=== PATIENT | female | born 1935 ===

== ENCOUNTER 2024-09-18 08:00 | Outpatient (CLI) | payer OTHER ==
[2024-09-18 10:54] LABS: PH,URINE 5.5 (5.0-8.0); URINE APPEARANCE Cloudy; URINE BILIRRUBIN Negative (NEGATIVE); URINE BLOOD Trace; URINE COLOR Yellow; URINE KETONE Negative (NEGATIVE); URINE LEUKOCYTE Small; URINE NITRATE Negative; URINE PROTEIN 30 (NEGATIVE); URINE UROBILINOGEN 0.2 E.U./dl
[2024-09-18 10:58] LABS: URINE BACTERIA 566.6 uL (0.0-1933); URINE CAST 1.76 uL (0.0-1.40); URINE EPITHELIAL CELLS 18.3 uL (0.0-38.8); URINE RBC 7.5 uL (0.0-20.8); URINE WBC 228.7 uL (0.0-23.2)
[2024-09-18 11:00] LABS: BASO % 0.8 % (0.1-1.2); EOS # 0.11 (0.04-0.54); HEMATOCRIT 27.4 % (34.1-44.9); HEMOGLOBIN 9.2 g/dL (11.2-15.7); LYMPH # 1.95 (1.18-3.74); LYMPH % 17.8 % (19.3-53.1); MEAN CORPUSCULAR HEMOGLOBIN 35.2 pg (25.6-32.2); MONO # 1.37 (0.24-0.82); NEUT # 7.34 (1.56-6.13); PLATELET COUNT 445 K/uL (163-369); RED BLOOD COUNT 2.61 M/uL (3.93-5.22); RED CELL DISTRIBUTION WIDTH 13.3 % (11.6-14.4)
[2024-09-18 11:01] LABS: MONO % 12.5 % (4.7-12.5)
[2024-09-18 11:15] LABS: INR 1.04; PARTIAL THROMBOPLASTIN TIME 23.4 SECONDS (22.0-34.0); PROTHROMBIN TIME 11.3 SECONDS (9.0-11.5)
[2024-09-18] MEDS ORDERED: FARXIGA10 MG PO (11:30)
[2024-09-18] MEDS ORDERED: SYNTHROID125 MCG PO (11:30)
[2024-09-18] MEDS ORDERED: TRULICITY0.75 MG/0. (11:30)
[2024-09-18] MEDS ORDERED: NORVASC2.5 M1 PO (11:31)
[2024-09-18] MEDS ORDERED: NORVASC5 MG PO (11:31)
[2024-09-18] MEDS ORDERED: COZAAR100 MG PO (11:31)
[2024-09-18] MEDS ORDERED: ZOCOR20 MG PO (11:32)
[2024-09-18] MEDS ORDERED: KERENDIA10 MG PO (11:32)
[2024-09-18] MEDS ORDERED: TOLTERODINE TART4 MG PO (11:33)
[2024-09-18 11:53] LABS: URINE GLUCOSE >=1000 MG/DL (NEGATIVE)
[2024-09-18 11:54] VITALS: BP 114/69
[2024-09-18 11:55] LABS: URINE MUCUS SCANT
[2024-09-18 11:56] LABS: TYPE CELLS SQUAMOUS
[2024-09-18 12:00] LABS: ALBUMIN 2.9 gm/dL (3.4-5.0); BILIRUBIN TOTAL 0.49 mg/dL (0.3-1.2); BILIRUBIN,CONJUGATED 0.19 mg/dL (0.0-0.2); BILIRUBIN,UNCONJUGATED 0.3 mg/dL (0.0-0.6); CALCIUM 9.7 mg/dL (8.5-10.1); POTASSIUM 5.33 mEq/L (3.5-5.1); TOTAL PROTEIN 7.3 gm/dL (6.4-8.2)
[2024-09-18 12:02] LABS: CREATININE SERUM 1.51 mg/dL (0.55-1.02); GFR 32.52
== END 2024-09-18 08:01 | disposition home or self-care (01) ==
LOC: LAB 08:00 → ADM 08:30 → CIR.AMB 09-23 07:00 → EDSTATUS 09-23 08:30
PROVIDERS: ATTEND Surgery
DX: K80.20 Calculus of gallbladder without cholecystitis without obstruction (principal); D68.8 Other specified coagulation defects; Z01.818 Encounter for other preprocedural examination; I10 Essential (primary) hypertension

== ENCOUNTER 2024-09-22 08:13 | Inpatient (IN) | payer OTHER ==
[~2024-09-22] VITALS: Ht 167.6 cm; Wt 72.6 kg
[~2024-09-22 08:13] MED LIST: COZAAR100 MG PO; FARXIGA10 MG PO; KERENDIA10 MG PO; NORVASC2.5 M1 PO; NORVASC5 MG PO; SYNTHROID125 MCG PO; TOLTERODINE TART4 MG PO; TRULICITY0.75 MG/0.; ZOCOR20 MG PO
--- NOTE | 2024-09-22 08:22 | NUR ---
SE RECIBE PACIENTE ALERTA Y ORIENTADA X3 EN COMPANIA DE FAMILIAR LA CUAL REFIERE VENIR POR TRACEY DE ESPALDA BAJA, ESCALOFRIOS Y REFIERE QUE MANANA TIENE DONOVAN OPERACION PROGRAMADA PARA MANANA DE VESICULA CON DR. PREETI RAYMOND.
[2024-09-22] MEDS ORDERED: 0.9 % SODIUM CHLORIDE 1,000 ML IV SCH (09:15)
--- NOTE | 2024-09-22 09:26 | NUR ---
APPLE ORIENTA A PTE SOBRE TX MEDICO ORDENADO POR . REALIZA KADE[place] DE MUESTRAS DE LAB MARY ORDEN MEDICA Y BAJO MEDIDAS ASPECTICAS. VENOPUNCION PATENTE JOSESITO DE EDEMA Y ERITEMA BAJANDO IV FLUIDS POR REGULADOR. PTE PENDIENTE A RESULTAODS DE LAB.
[2024-09-22 09:45] LABS: BASO % 0.4 % (0.1-1.2); EOS # 0.00 (0.04-0.54); EOS % 0.0 % (0.7-7.0); LYMPH # 1.03 (1.18-3.74); LYMPH % 5.7 % (19.3-53.1); MEAN PLATELET VOLUME 10.50 fl (9.4-12.4); MONO # 1.46 (0.24-0.82); MONO % 8.1 % (4.7-12.5); NEUT # 15.35 (1.56-6.13); NEUT % 85.2 % (34.0-71.1); RED CELL DISTRIBUTION WIDTH 13.2 % (11.6-14.4)
[2024-09-22 10:07] LABS: INR 1.11
[2024-09-22 10:10] LABS: URINE APPEARANCE Clear; URINE BILIRRUBIN Negative (NEGATIVE); URINE BLOOD Trace; URINE COLOR Yellow; URINE KETONE Negative (NEGATIVE); URINE LEUKOCYTE Small; URINE NITRATE Positive; URINE PROTEIN 30 (NEGATIVE); URINE UROBILINOGEN 0.2 E.U./dl
[2024-09-22] MEDS ORDERED: PIPERACILLIN/TAZOBACTAM SODIUM 3.375 GM VIAL IV ONE ×2 (10:11→10:15)
[2024-09-22 10:12] LABS: ALT/SGPT 20.0 U/L (12-78); AST/SGOT 20.0 U/L (15-37); BILIRUBIN TOTAL 0.61 mg/dL (0.3-1.2); BILIRUBIN,CONJUGATED 0.24 mg/dL (0.0-0.2); BUN CREA RATIO 15.0 (7.0-25.0); CREATININE SERUM 1.95 mg/dL (0.55-1.02); GFR 24.21; GLOBULINA 4.7 G/DL (2.4-3.5); OSMOLALITY SERUM 291.0 MOSM/KG (275-295)
[2024-09-22 10:14] LABS: URINE BACTERIA 4021.8 uL (0.0-1933); URINE EPITHELIAL CELLS 20.8 uL (0.0-38.8); URINE RBC 11.6 uL (0.0-20.8); URINE WBC 275.4 uL (0.0-23.2)
[2024-09-22 10:32] LABS: GLUCOSE FASTING 259.0 mg/dL (65-100)
[2024-09-22 10:47] LABS: COVID-19 AG NEGATIVE (NEGATIVE)
[2024-09-22 10:49] LABS: URINE CAST 0.58 uL (0.0-1.40); URINE GLUCOSE >=1000 MG/DL (NEGATIVE)
[2024-09-22] MEDS ORDERED: ONDANSETRON HCL 2 MG/ML VIAL IV PRN (15:00)
[2024-09-22] MEDS ORDERED: ENALAPRILAT DIHYDRATE 2.5 MG/2 ML VIAL IV PRN (15:00)
[2024-09-22] MEDS ORDERED: ACETAMINOPHEN 500 MG GEL..CAP PO PRN (15:00)
[2024-09-22] MEDS ORDERED: DEXTROSE 50 % IN WATER 0.5 G/ML VIAL IV PRN (15:00)
[2024-09-22] MEDS ORDERED: INSULIN LISPRO 1,000 UNIT/10 ML UNITS SUBCUTANEO PRN (15:00)
[2024-09-22] MEDS ORDERED: FAMOTIDINE/PF 20 MG in 0.9 % SODIUM CHLORIDE 8 ML IV PUSH SCH (15:00)
[2024-09-22] MEDS ORDERED: FAMOTIDINE/PF 20 MG/2 ML VIAL ONE ×2 (15:15→21:57)
[2024-09-22] MEDS ORDERED: OSELTAMIVIR PHOSPHATE 30MG CAP PO SCH (17:00)
[2024-09-22] MEDS ORDERED: ENOXAPARIN SODIUM 30 MG/0.3 ML SYRINGE SUBCUTANEO SCH (17:00)
[2024-09-22] MEDS ORDERED: INSULIN LISPRO 1,000 UNIT/10 ML UNITS SUBCUTANEO ONE (17:33)
[2024-09-22 20:28] LABS: URINE APPEARANCE Clear; URINE BILIRRUBIN Negative (NEGATIVE); URINE BLOOD Trace; URINE COLOR Yellow; URINE KETONE Negative (NEGATIVE); URINE LEUKOCYTE Moderate; URINE NITRATE Negative; URINE PROTEIN 30 (NEGATIVE); URINE UROBILINOGEN 0.2 E.U./dl
[2024-09-22 20:31] LABS: URINE BACTERIA 692.6 uL (0.0-1933); URINE CAST 1.32 uL (0.0-1.40); URINE EPITHELIAL CELLS 61.4 uL (0.0-38.8); URINE GLUCOSE >=1000 MG/DL (NEGATIVE); URINE RBC 32.2 uL (0.0-20.8); URINE WBC 468.8 uL (0.0-23.2)
[2024-09-22 20:55] LABS: URINE YEAST MODERATE /hpf
[2024-09-22 20:56] LABS: TYPE CELLS SQUAMOUS; URINE MUCUS SCANT
[2024-09-22] MEDS ORDERED: ACETAMINOPHEN 500 MG GEL..CAP PO ONE (22:48)
[2024-09-22 22:50] VITALS: BP 161/75; O2SAT 100
[2024-09-22 23:35] VITALS: BP 145/66; O2SAT 97
[2024-09-23] MEDS ORDERED: PIPERACILLIN/TAZOBACTAM SODIUM 2.25 GM in DEXTROSE 5 % IN WATER 50 ML IV SCH
[2024-09-23] MEDS ORDERED: LEVOTHYROXINE SODIUM 125 MCG TABLET PO SCH (06:00)
[2024-09-23 06:14] LABS: BASO % 0.5 % (0.1-1.2); EOS # 0.09 (0.04-0.54); EOS % 0.7 % (0.7-7.0); LYMPH # 2.06 (1.18-3.74); LYMPH % 16.4 % (19.3-53.1); MEAN PLATELET VOLUME 10.70 fl (9.4-12.4); MONO # 1.40 (0.24-0.82); MONO % 11.1 % (4.7-12.5); NEUT # 8.89 (1.56-6.13); NEUT % 70.8 % (34.0-71.1); RED CELL DISTRIBUTION WIDTH 13.3 % (11.6-14.4)
[2024-09-23] MEDS ORDERED: ENALAPRILAT DIHYDRATE 1.25 MG/ML VIAL IV PRN (06:45)
[2024-09-23 06:46] LABS: ALT/SGPT 17.0 U/L (12-78); AST/SGOT 12.0 U/L (15-37); BILIRUBIN TOTAL 0.43 mg/dL (0.3-1.2); BUN CREA RATIO 16.0 (7.0-25.0); CREATININE SERUM 1.76 mg/dL (0.55-1.02); GFR 27.25; GLOBULINA 4.2 G/DL (2.4-3.5); GLUCOSE FASTING 128.0 mg/dL (65-100); OSMOLALITY SERUM 290.0 MOSM/KG (275-295)
[2024-09-23 08:05] VITALS: BP 137/66; O2SAT 100
[2024-09-23] MEDS ORDERED: LOSARTAN POTASSIUM 100 MG TABLET PO SCH (09:00)
[2024-09-23] MEDS ORDERED: AMLODIPINE BESYLATE 5 MG TABLET PO SCH (09:00)
[2024-09-23 17:38] VITALS: BP 148/64
[2024-09-23 19:37] LABS: BASO % 0.8 % (0.1-1.2); EOS # 0.21 (0.04-0.54); EOS % 2.3 % (0.7-7.0); LYMPH # 1.66 (1.18-3.74); LYMPH % 18.0 % (19.3-53.1); MEAN PLATELET VOLUME 11.10 fl (9.4-12.4); MONO # 1.15 (0.24-0.82); NEUT # 6.06 (1.56-6.13); NEUT % 65.9 % (34.0-71.1); RED CELL DISTRIBUTION WIDTH 15.5 % (11.6-14.4)
[2024-09-23 19:40] LABS: MONO % 12.5 % (4.7-12.5)
[2024-09-24 02:26] VITALS: BP 125/68; O2SAT 94
[2024-09-24 06:58] LABS: BASO % 1.0 % (0.1-1.2); EOS # 0.29 (0.04-0.54); EOS % 3.3 % (0.7-7.0); LYMPH # 2.66 (1.18-3.74); LYMPH % 30.2 % (19.3-53.1); MEAN PLATELET VOLUME 11.50 fl (9.4-12.4); MONO # 1.42 (0.24-0.82); NEUT # 4.32 (1.56-6.13); NEUT % 49.1 % (34.0-71.1); RED CELL DISTRIBUTION WIDTH 15.5 % (11.6-14.4)
[2024-09-24 07:13] LABS: MONO % 16.1 % (4.7-12.5)
[2024-09-24 08:23] VITALS: BP 154/74; O2SAT 99
[2024-09-24 08:37] LABS: URINE APPEARANCE Clear; URINE BACTERIA 48.9 uL (0.0-1933); URINE BILIRRUBIN Negative (NEGATIVE); URINE BLOOD Trace; URINE COLOR Yellow; URINE EPITHELIAL CELLS 9.8 uL (0.0-38.8); URINE KETONE Negative (NEGATIVE); URINE LEUKOCYTE Small; URINE NITRATE Negative; URINE PROTEIN Trace (NEGATIVE); URINE UROBILINOGEN 0.2 E.U./dl; URINE WBC 64.4 uL (0.0-23.2)
[2024-09-24 08:56] LABS: URINE CAST 0.29 uL (0.0-1.40); URINE GLUCOSE 500 MG/DL (NEGATIVE); URINE RBC 1.0 uL (0.0-20.8)
[2024-09-24] MEDS ORDERED: LACTOBACILLUS ACIDOPHILUS 1 CAP CAP PO SCH (09:00)
[2024-09-24] MEDS ORDERED: IRON FUM,PS/FOLIC/BCOMP,C NO.9 1 CAP CAPSULE PO SCH (09:00)
[2024-09-24] MEDS ORDERED: FOLIC ACID 1 MG TABLET PO SCH (09:00)
[2024-09-24] MEDS ORDERED: Cyanocobalamin/Mecobalamin 1 TAB.SL SL SCH (09:00)
[2024-09-24 18:49] VITALS: BP 156/54
[2024-09-25 01:55] VITALS: BP 158/67; O2SAT 96
[2024-09-25 06:32] LABS: BASO % 0.9 % (0.1-1.2); EOS # 0.31 (0.04-0.54); EOS % 4.1 % (0.7-7.0); LYMPH # 2.41 (1.18-3.74); LYMPH % 32.3 % (19.3-53.1); MEAN PLATELET VOLUME 11.40 fl (9.4-12.4); MONO # 1.08 (0.24-0.82); NEUT # 3.57 (1.56-6.13); NEUT % 47.8 % (34.0-71.1); RED CELL DISTRIBUTION WIDTH 15.1 % (11.6-14.4)
[2024-09-25 06:54] LABS: MONO % 14.5 % (4.7-12.5)
[2024-09-25 07:45] LABS: BUN CREA RATIO 10.0 (7.0-25.0); CREATININE SERUM 1.39 mg/dL (0.55-1.02); GFR 35.78; GLUCOSE FASTING 104.0 mg/dL (65-100); OSMOLALITY SERUM 288.0 MOSM/KG (275-295)
[2024-09-25 08:26] VITALS: BP 142/74; O2SAT 100
[2024-09-25] MEDS ORDERED: CEFTRIAXONE SODIUM 2,000 MG VIAL IV SCH (17:00)
[2024-09-25 18:37] VITALS: BP 150/63
[2024-09-26 01:38] VITALS: BP 151/70; O2SAT 96
[2024-09-26 07:00] VITALS: BP 170/84; O2SAT 97
[2024-09-26 18:14] VITALS: BP 162/69; O2SAT 98
[2024-09-27 01:34] VITALS: BP 150/70; O2SAT 97
[2024-09-27 07:00] VITALS: BP 169/62; O2SAT 95
[2024-09-27 08:33] LABS: ALT/SGPT 25.0 U/L (12-78); AST/SGOT 33.0 U/L (15-37); BILIRUBIN TOTAL 0.33 mg/dL (0.3-1.2); BUN CREA RATIO 9.0 (7.0-25.0); CREATININE SERUM 1.19 mg/dL (0.55-1.02); GFR 42.81; GLOBULINA 4.0 G/DL (2.4-3.5); GLUCOSE FASTING 137.0 mg/dL (65-100); OSMOLALITY SERUM 288.0 MOSM/KG (275-295)
[2024-09-27 09:28] LABS: BASO % 1.1 % (0.1-1.2); EOS # 0.35 (0.04-0.54); EOS % 5.3 % (0.7-7.0); LYMPH # 2.41 (1.18-3.74); LYMPH % 36.7 % (19.3-53.1); MEAN PLATELET VOLUME 11.30 fl (9.4-12.4); MONO # 0.86 (0.24-0.82); NEUT # 2.79 (1.56-6.13); NEUT % 42.6 % (34.0-71.1); RED CELL DISTRIBUTION WIDTH 15.4 % (11.6-14.4)
[2024-09-27 09:31] LABS: MONO % 13.1 % (4.7-12.5)
[2024-09-27] MEDS ORDERED: BISMUTH SUBSALICYLATE 524 MG/30 ML BLIST.PACK PO NR (15:10)
[2024-09-27 16:00] VITALS: BP 164/67; O2SAT 98
[2024-09-27] MEDS ORDERED: FAMOTIDINE/PF 20 MG in 0.9 % SODIUM CHLORIDE 8 ML IV PUSH SCH (21:00)
[2024-09-28 02:03] VITALS: BP 153/55; O2SAT 97
[2024-09-28 10:11] VITALS: BP 134/59; O2SAT 97
[2024-09-28 18:25] VITALS: BP 154/71
[2024-09-29 01:00] VITALS: BP 165/54; O2SAT 98
[2024-09-29 09:08] VITALS: BP 157/65; O2SAT 94
[2024-09-29 18:43] VITALS: BP 160/77; O2SAT 98
[2024-09-29] MEDS ORDERED: ACETAMINOPHEN 500 MG GEL..CAP PO PRN (19:45)
[2024-09-30] VITALS (8 sets, daily range): BP systolic 123–200; BP diastolic 62–100; O2SAT 85–99
[2024-09-30 08:32] LABS: BASO % 0.6 % (0.1-1.2); EOS # 0.03 (0.04-0.54); EOS % 0.3 % (0.7-7.0); LYMPH # 0.90 (1.18-3.74); LYMPH % 10.3 % (19.3-53.1); MEAN PLATELET VOLUME 10.70 fl (9.4-12.4); MONO # 0.09 (0.24-0.82); MONO % 1.0 % (4.7-12.5); NEUT # 7.60 (1.56-6.13); NEUT % 87.1 % (34.0-71.1); RED CELL DISTRIBUTION WIDTH 15.4 % (11.6-14.4)
[2024-09-30 09:50] LABS: ALT/SGPT 20.0 U/L (12-78); AST/SGOT 24.0 U/L (15-37); BILIRUBIN TOTAL 0.55 mg/dL (0.3-1.2); BUN CREA RATIO 7.0 (7.0-25.0); CREATININE SERUM 1.02 mg/dL (0.55-1.02); GFR 51.14; GLOBULINA 4.1 G/DL (2.4-3.5); GLUCOSE FASTING 199.0 mg/dL (65-100); OSMOLALITY SERUM 287.0 MOSM/KG (275-295)
[2024-09-30] MEDS ORDERED: ONDANSETRON HCL 4 MG in 0.9 % SODIUM CHLORIDE 50 ML IV PRN (16:00)
[2024-09-30] MEDS ORDERED: MEPERIDINE HCL/PF 25 MG/ML VIAL IV PRN (16:00)
[2024-09-30] MEDS ORDERED: IPRATROPIUM BROMIDE 0.5 MG/2.5 ML AMPUL.NEB IH SCH (17:00)
[2024-09-30] MEDS ORDERED: MEROPENEM 500 MG in 0.9 % SODIUM CHLORIDE 50 ML IV SCH (17:00)
[2024-09-30] MEDS ORDERED: FAMOTIDINE/PF 20 MG in 0.9 % SODIUM CHLORIDE 100 ML IV SCH (17:00)
[2024-09-30] MEDS ORDERED: CIPROFLOXACIN IN 5 % DEXTROSE 200 ML IV SCH (17:00)
[2024-09-30] MEDS ORDERED: LEVALBUTEROL HCL 0.63 MG/3 ML SOLUTION IH SCH (17:00)
[2024-09-30 17:27] LABS: ABG PH 7.423 (7.35-7.45); ABG PO2 69.4 mmHg (80-100); BICARBONATE 21.8 mmol/l (23-25)
[2024-09-30 17:58] LABS: o2 21 %
[2024-09-30 18:32] LABS: URINE APPEARANCE Clear; URINE BILIRRUBIN Negative (NEGATIVE); URINE BLOOD Negative; URINE COLOR Yellow; URINE GLUCOSE Negative (NEGATIVE); URINE KETONE Negative (NEGATIVE); URINE LEUKOCYTE Small; URINE NITRATE Negative; URINE UROBILINOGEN 0.2 E.U./dl
[2024-09-30 18:33] LABS: URINE BACTERIA 97.2 uL (0.0-1933); URINE EPITHELIAL CELLS 26.4 uL (0.0-38.8); URINE RBC 6.8 uL (0.0-20.8); URINE WBC 108.5 uL (0.0-23.2)
[2024-09-30 19:39] LABS: URINE CAST 1.31 uL (0.0-1.40); URINE PROTEIN 100 (NEGATIVE)
[2024-09-30 19:44] LABS: TYPE CELLS SQUAMOUS
[2024-09-30 19:45] LABS: URINE YEAST FEW /hpf
[2024-10-01] VITALS (9 sets, daily range): BP systolic 106–128; BP diastolic 60–65; O2SAT 95–99
[2024-10-01 06:19] LABS: BASO % 0.4 % (0.1-1.2); EOS # 0.05 (0.04-0.54); EOS % 0.3 % (0.7-7.0); LYMPH # 3.04 (1.18-3.74); LYMPH % 18.1 % (19.3-53.1); MEAN PLATELET VOLUME 11.00 fl (9.4-12.4); MONO # 1.29 (0.24-0.82); MONO % 7.7 % (4.7-12.5); NEUT # 12.27 (1.56-6.13); NEUT % 72.9 % (34.0-71.1); RED CELL DISTRIBUTION WIDTH 15.5 % (11.6-14.4)
[2024-10-01 07:00] LABS: ALT/SGPT 15.0 U/L (12-78); AST/SGOT 16.0 U/L (15-37); BILIRUBIN TOTAL 0.29 mg/dL (0.3-1.2); BUN CREA RATIO 11.0 (7.0-25.0); CREATININE SERUM 1.31 mg/dL (0.55-1.02); GFR 38.32; GLOBULINA 3.4 G/DL (2.4-3.5); GLUCOSE FASTING 152.0 mg/dL (65-100); OSMOLALITY SERUM 285.0 MOSM/KG (275-295)
[2024-10-01] MEDS ORDERED: PANTOPRAZOLE SODIUM 40 MG/VIAL VIAL IV SCH (07:30)
[2024-10-01] MEDS ORDERED: IPRATROPIUM BROMIDE 0.5 MG/2.5 ML AMPUL.NEB IH SCH (09:00)
[2024-10-01] MEDS ORDERED: LEVALBUTEROL HCL 0.63 MG/3 ML SOLUTION IH SCH (09:00)
[2024-10-01] MEDS ORDERED: VANCOMYCIN HCL 1,000 MG VIAL IV SCH (12:00)
[2024-10-01] MEDS ORDERED: AA 5 %/CALCIUM/LYTES/DEXT 20 % 2,000 ML CENTRAL SCH (17:00)
[2024-10-01] MEDS ORDERED: LINEZOLID IN DEXTROSE 5% 300 ML IV SCH (17:00)
[2024-10-01 21:28] LABS: ALT/SGPT 16.0 U/L (12-78); AST/SGOT 14.0 U/L (15-37); BILIRUBIN TOTAL 0.31 mg/dL (0.3-1.2); BUN CREA RATIO 11.0 (7.0-25.0); CHOL HDL RATIO 2.7 (0-5.0); CREATININE SERUM 1.71 mg/dL (0.55-1.02); GFR 28.17; GLOBULINA 3.4 G/DL (2.4-3.5); HDL 41.0 mg/dl (40-60); LDL 50.0 mg/dl (0-130); OSMOLALITY SERUM 286.0 MOSM/KG (275-295); VLDL 17.0 (0-39)
[2024-10-01 21:31] LABS: GLUCOSE FASTING 212.0 mg/dL (65-100)
[2024-10-02] VITALS (8 sets, daily range): BP systolic 130–159; BP diastolic 63–74; O2SAT 90–98
[2024-10-02 05:50] LABS: BASO % 0.5 % (0.1-1.2); EOS # 0.23 (0.04-0.54); EOS % 1.4 % (0.7-7.0); LYMPH # 2.13 (1.18-3.74); LYMPH % 12.6 % (19.3-53.1); MEAN PLATELET VOLUME 11.30 fl (9.4-12.4); MONO # 1.19 (0.24-0.82); MONO % 7.0 % (4.7-12.5); NEUT # 13.22 (1.56-6.13); NEUT % 77.9 % (34.0-71.1); RED CELL DISTRIBUTION WIDTH 15.7 % (11.6-14.4)
[2024-10-02] MEDS ORDERED: BENZONATATE 200 MG CAPSULE PO SCH (17:00)
[2024-10-02] MEDS ORDERED: LORATADINE 10 MG TABLET PO SCH (21:00)
[2024-10-03] VITALS (9 sets, daily range): BP systolic 131–168; BP diastolic 66–82; O2SAT 90–100
[2024-10-03] MEDS ORDERED: HYOSCYAMINE SULFATE 0.125 MG TAB.SUBL SL NR (08:30)
[2024-10-03] MEDS ORDERED: HYOSCYAMINE SULFATE 0.125 MG TAB.SUBL SL SCH (14:00)
[2024-10-03] MEDS ORDERED: FLUCONAZOLE IN NACL,ISO-OSM 200 MG/100 ML PIGGYBAG IV NR (16:00)
[2024-10-04] VITALS (8 sets, daily range): BP systolic 132–160; BP diastolic 59–72; O2SAT 90–100
[2024-10-04] MEDS ORDERED: GUAIFEN/DEXTROMETHORPHAN/PE 10 ML BLIST.PACK PO SCH (12:00)
[2024-10-05] VITALS (9 sets, daily range): BP systolic 150–167; BP diastolic 67–86; O2SAT 90–100
[2024-10-05 07:15] LABS: ALT/SGPT 20.0 U/L (12-78); AST/SGOT 20.0 U/L (15-37); BILIRUBIN TOTAL 0.41 mg/dL (0.3-1.2); BUN CREA RATIO 9.0 (7.0-25.0); CREATININE SERUM 0.9 mg/dL (0.55-1.02); GFR 59.09; GLOBULINA 3.7 G/DL (2.4-3.5); GLUCOSE FASTING 150.0 mg/dL (65-100); OSMOLALITY SERUM 294.0 MOSM/KG (275-295)
[2024-10-05] MEDS ORDERED: FLUTICASONE PROPIONATE 50 MCG SPRAY NASAL SCH (21:00)
[2024-10-06] VITALS (9 sets, daily range): BP systolic 129–171; BP diastolic 64–73; O2SAT 96–100
[2024-10-06 05:33] LABS: BASO % 1.2 % (0.1-1.2); EOS # 0.55 (0.04-0.54); EOS % 5.9 % (0.7-7.0); LYMPH # 3.56 (1.18-3.74); LYMPH % 38.5 % (19.3-53.1); MEAN PLATELET VOLUME 10.70 fl (9.4-12.4); MONO # 1.13 (0.24-0.82); NEUT # 3.82 (1.56-6.13); NEUT % 41.3 % (34.0-71.1); RED CELL DISTRIBUTION WIDTH 16.1 % (11.6-14.4)
[2024-10-06 05:39] LABS: MONO % 12.2 % (4.7-12.5)
[2024-10-06 06:53] LABS: ALT/SGPT 16.0 U/L (12-78); AST/SGOT 18.0 U/L (15-37); BILIRUBIN TOTAL 0.38 mg/dL (0.3-1.2); BUN CREA RATIO 9.0 (7.0-25.0); CREATININE SERUM 0.81 mg/dL (0.55-1.02); GFR 66.73; GLOBULINA 3.5 G/DL (2.4-3.5); GLUCOSE FASTING 136.0 mg/dL (65-100); OSMOLALITY SERUM 287.0 MOSM/KG (275-295)
[2024-10-06] MEDS ORDERED: MAGNESIUM SULFATE IN WATER 2 GM/50 ML PIGGYBAG IV NR (16:00)
[2024-10-06] MEDS ORDERED: INSULIN LISPRO 1,000 UNIT/10 ML UNITS SUBCUTANEO PRN (18:30)
[2024-10-07] VITALS (7 sets, daily range): BP systolic 144; BP diastolic 67–73; O2SAT 89–99
[2024-10-07] MEDS ORDERED: CODEINE PHOSPHATE/GUAIFENESIN 5 ML ML PO SCH (01:00)
[2024-10-07] MEDS ORDERED: INSULIN NPH HUM/REG INSULIN HM 1,000 UNIT/10 ML UNITS SUBCUTANEO SCH (08:00)
== END 2024-10-07 16:13 | disposition home or self-care (01) | DRG 445 ==
LOC: ER 08:13 → SEC-K 15:16 → SURH 21:02 → SEC-K 22:07 → MEDJ 09-23 10:20 → MEDI 10-01 15:49
PROVIDERS: Emergency Medicine; Internal Medicine; Internal Medicine Infectious Disease; ADMIT Internal Medicine; ATTEND Internal Medicine
PROC: BW40ZZZ Ultrasonography of Abdomen (ICD-10-PCS; principal; 2024-09-22)
PROC: 30233N1 Transfusion of Nonautologous Red Blood Cells into Peripheral Vein, Percutaneous Approach (ICD-10-PCS; 2024-09-23)
PROC: B246ZZZ Ultrasonography of Right and Left Heart (ICD-10-PCS; 2024-09-24)
PROC: 02HV33Z Insertion of Infusion Device into Superior Vena Cava, Percutaneous Approach (ICD-10-PCS; 2024-09-29)
PROC: BW21YZZ Computerized Tomography (CT Scan) of Abdomen and Pelvis using Other Contrast (ICD-10-PCS; 2024-09-30)
PROC: 3E0F7GC Introduction of Other Therapeutic Substance into Respiratory Tract, Via Natural or Artificial Opening (ICD-10-PCS; 2024-09-30)
PROC: 4A12X4Z Monitoring of Cardiac Electrical Activity, External Approach (ICD-10-PCS; 2024-09-30)
PROC: BB24ZZZ Computerized Tomography (CT Scan) of Bilateral Lungs (ICD-10-PCS; 2024-10-01)
DX: K80.20 Calculus of gallbladder without cholecystitis without obstruction (principal); N17.8 Other acute kidney failure; N39.0 Urinary tract infection, site not specified; R78.81 Bacteremia; J10.1 Influenza due to other identified influenza virus with other respiratory manifestations; E03.8 Other specified hypothyroidism; Z79.4 Long term (current) use of insulin; I12.9 Hypertensive chronic kidney disease with stage 1 through stage 4 chronic kidney disease, or unspecified chronic kidney disease; E11.22 Type 2 diabetes mellitus with diabetic chronic kidney disease; N18.9 Chronic kidney disease, unspecified; D72.828 Other elevated white blood cell count; B96.29 Other Escherichia coli [E. coli] as the cause of diseases classified elsewhere; R09.02 Hypoxemia

== ENCOUNTER 2024-11-04 08:00 | Outpatient (CLI) | payer OTHER | END 2024-11-04 08:01 | disposition home or self-care (01) | LOC: EKG 08:00 → ADM 11:45 → CIR.AMB 11-11 07:00 → EDSTATUS 11-11 11:45 | PROVIDERS: ATTEND Surgery | DX: K80.20 Calculus of gallbladder without cholecystitis without obstruction (principal); Z01.818 Encounter for other preprocedural examination ==

== ENCOUNTER 2024-12-23 07:00 | Day surgery (SDC) | payer OTHER ==
[2024-12-18 10:32] LABS: INR 1.02
[2024-12-23] MEDS ORDERED: ENOXAPARIN SODIUM 40 MG/0.4 ML SYRINGE SUBCUTANEO ONE ×2 (08:04→10:00)
[2024-12-23] MEDS ORDERED: METRONIDAZOLE/SODIUM CHLORIDE 500 MG/100 ML PIGGYBACK IV ONE ×2 (08:05→10:00)
[2024-12-23] MEDS ORDERED: BUPIVACAINE HCL 30 ML VIAL IJ ONE (10:00)
[2024-12-23] MEDS ORDERED: CEFTRIAXONE SODIUM 2,000 MG VIAL IV ONE (10:00)
[2024-12-23] MEDS ORDERED: PERCOCET 5-3251 EACH PO (12:41)
== END 2024-12-23 15:50 | disposition home or self-care (01) ==
LOC: CIR.AMB 07:00
PROVIDERS: ATTEND Surgery
DX: K80.10 Calculus of gallbladder with chronic cholecystitis without obstruction (principal)